=== PATIENT | female | born 1960 | race Caucasian/White ===

== ENCOUNTER 2018-09-15 12:26 | Observation (INO) ==
--- NOTE | 2018-09-15 13:09 | Emergency Department Note ---
Disposition Clinical Impression: Hyperglycemia Nausea and vomiting Qualifiers: Vomiting type: unspecified Vomiting Intractability: non-intractable Qualified Code(s): R11.2 - Nausea with vomiting, unspecified Peripheral vertigo, unspecified Qualifiers: Laterality: unspecified laterality Qualified Code(s): H81.399 - Other peripheral vertigo, unspecified ear UTI (urinary tract infection) Qualifiers: Urinary tract infection type: site unspecified Hematuria presence: without hematuria Qualified Code(s): N39.0 - Urinary tract infection, site not specified Disposition: Admitted As Inpatient Condition: Fair Time of Disposition: 17:34 Nausea/Vomiting/Diarrhea HPI - General Chief complaint: ED Nausea/Vomiting/Diarrhea Stated complaint: n/v and vertigo Time Seen by Provider: 09/15/18 13:07 Source: patient Mode of arrival: private vehicle Limitations: no limitations Nursing Notes Reviewed: Yes Vital Signs Reviewed: Yes - History of Present Illness HPI Narrative: Patient presents to the ED complaining of nausea, vomiting and dizziness. Symptoms have been going on since September 10. She was seen here on September 12 for the same symptoms. She states the symptoms have not really gone away since she was seen here last despite taking Phenergan and meclizine. She states the dizziness is primarily with certain movements of her head. Nausea happens primarily with the dizziness but occasionally at other times. She denies any abdominal pain. No diarrhea or constipation. No urinary symptoms. No fever or chills. She does report that she has had some intermittent chest pain today that started around 7 AM while she was watching television. Pain does not radiate. It is in the center of her chest. Nothing seems to make it better or worse. She states she also had chest pain when she was seen here on the . Review of records shows that she had a normal EKG, normal head CT and abdominal CT at that time. She did have some mild lab abnormalities including signs of possible dehydration as well as some hyperglycemia and elevated lactate. Will repeat lab work today and EKG. I do not feel that repeat head CT and abdominal CT are warranted yet at this time. - Related Data Home Medications Medication Instructions Recorded Confirmed Aspirin [Lo-Dose Aspirin EC] 81 mg PO DAILY 09/12/18 09/15/18 Humalog Kwikpen U-100 4 unit SQ TID 09/12/18 09/15/18 Insulin Glargine [Lantus] 14 unit SQ HS 09/12/18 09/15/18 Semaglutide [Ozempic] 0.25 mg SQ Q7D 09/12/18 09/15/18 metFORMIN [Glucophage] 500 mg PO DAILY 09/12/18 09/15/18 Furosemide [Lasix] 20 mg PO DAILY 09/15/18 09/15/18 Potassium Chloride [Klor-Con 10] 10 meq PO DAILY 09/15/18 09/15/18 hydrOXYzine HCl [Hydroxyzine HCl] 25 mg PO DAILY 09/15/18 09/15/18 Previous Rx's Medication Instructions Recorded Meclizine [Antivert] 25 mg PO QID #20 tablet 09/12/18 Promethazine [Phenergan] 12.5 mg PO Q6HR #10 tablet 09/12/18 Allergies Allergy/AdvReac Type Severity Reaction Status Date / Time sulfamethoxazole Allergy Vomiting Verified 09/12/18 21:25 [From Bactrim] trimethoprim [From Bactrim] Allergy Vomiting Verified 09/12/18 21:25 Constitutional: Denies: fever, chills, weakness, weight change Eyes: Denies: eye pain, eye discharge, vision change ENT ED: Denies: ear pain, throat pain, dental pain, hearing loss, epistaxis, congestion, dysphagia Cardiovascular: Reports: chest pain. Denies: palpitations, dyspnea on exertion, edema, syncope Respiratory: Reports: dyspnea. Denies: cough, wheezes, hemoptysis, stridor Gastrointestinal: Reports: nausea, vomiting. Denies: abdominal pain, diarrhea, constipation, hematemesis, melena, hematochezia Genitourinary: Denies: dysuria, frequency, hematuria, discharge Musculoskeletal: Denies: back pain, neck pain, arthralgia, myalgia Integumentary: Denies: rash, abrasion, lesions Neurological: Reports: vertigo. Denies: headache, weakness, numbness, paresthesias, confusion, abnormal gait Psychiatric: Denies: anxiety, depression, suicidal thoughts, homicidal thoughts, auditory hallucinations, visual hallucinations Endocrine: Denies: fatigue Hematological/Lymphatic: Denies: easy bleeding, easy bruising Allergic/Immunologic: Denies: facial swelling, urticaria Past Medical History - Past Medical History Medical history: Reports: diabetes, hyperlipidemia, hypertension, thyroid disease Psychiatric history: Reports: no psych history - Social History Smoking Status: Never smoker Smokeless Tobacco Status: No Alcohol use: Reports: none Drug use: Reports: none Physical Exam - General Limitations: no limitations General appearance: alert, in no apparent distress, other (frail, ill appearing) - Head Head exam: atraumatic, normocephalic, normal inspection - Eye Eye exam: Present: normal appearance, PERRL, EOMI - ENT ENT exam: normal exam, normal oropharynx, mucous membranes dry - Neck Neck exam: Present: normal inspection, full ROM, trachea midline - Chest Chest inspection: Present: normal inspection, symmetric chest wall rise - Respiratory Respiratory exam: Present: normal lung sounds bilaterally - Cardiovascular Cardiovascular exam: Present: regular rate, normal rhythm, normal heart sounds - Abdominal Exam Abdominal exam: Present: soft, Non-Tender. Absent: tenderness, distention, guarding, rebound, rigidity - Extremities Exam Extremities exam: Present: normal inspection, full ROM. Absent: tenderness, pedal edema - Back Exam Back exam: Present: normal inspection, full ROM. Absent: tenderness - Neurological Exam Neurological exam: Present: alert, oriented X3 - Psychiatric Psychiatric exam: Present: normal affect, normal mood - Skin Skin exam: Present: warm, dry, intact, normal color Course Course Narrative: Patient presents to the ED with persistent nausea, vomiting and vertigo along with some chest pain and shortness of breath despite taking meclizine and Phenergan for the past few days for similar symptoms. On arrival she is afebrile, he definitely stable and nontoxic in appearance other she does appear clinically dehydrated and somewhat ill-appearing. Will check labs, give medication for nausea and IV fluids. - Reevaluation(s) Reevaluation #1: Fingerstick glucose in the 400s with a mildly elevated white blood cell count. Urinalysis shows evidence of UTI. Troponin and lactic acid are normal. Additional labs were performed to rule out possibility of DKA. Patient was given insulin and IV fluids with some improvement in her sugars although they still remained elevated. She continued to have persistent nausea and intermittent vomiting despite medications here in the ER. Discussed with patient admission for continued monitoring and treatment and she is in agreement. Reevaluation #2: I spoke to the hospitalist avionics mechanic, Dr. León who has accepted the patient. Time: 17:34 Vital Signs Temperature 98 F 09/15/18 12:27 Pulse Rate 90 09/15/18 12:27 Respiratory Rate 18 09/15/18 12:27 Blood Pressure 101/67 09/15/18 12:27 O2 Sat by Pulse Oximetry 96 09/15/18 12:27 Temperature 99.6 F 09/16/18 06:27 Pulse Rate 86 09/16/18 06:27 Respiratory Rate 16 09/16/18 06:27 Blood Pressure 142/94 09/16/18 06:27 O2 Sat by Pulse Oximetry 99 09/16/18 06:27 Oxygen Delivery Oxygen Delivery Nasal Cannula Nausea/Vomiting/Diarrhea - Medical Records Medical records reviewed: Yes I reviewed the patient's medical records. - Lab Data Lab results reviewed: Yes I reviewed the patient's lab results. Result diagrams: 09/15/18 13:37 09/15/18 13:37 Lab Results 09/15/18 09/15/18 09/15/18 Range/Units 13:15 13:37 13:37 WBC 14.7 H (4.3-11.1) K/mcL RBC 4.67 (3.82-4.97) M/mcL Hgb 12.3 (11.5-15.4) g/dL Hct 38.2 (35.3-44.9) % MCV 81.8 L (83.0-100.0) fL MCH 26.3 L (28.0-33.3) pg MCHC 32.2 (31.6-35.5) g/dL RDW 15.4 H (11.5-14.5) % Plt Count 259 (140-400) K/mcL MPV 10.2 (9.4-12.4) fL Immature Gran % 0.5 (0-4) % Seg Neutrophils % 84.7 % Lymphocytes % 6.6 % Monocytes % 8.1 % Eosinophils % 0.0 % Basophils % 0.1 % Neutrophils # 12.5 H (1.6-8.9) K/mcL Lymphocytes # 1.0 (0.6-4.6) K/mcL Monocytes # 1.2 (0.0-1.3) K/mcL Eosinophils # 0.0 (0.0-0.6) K/mcL Basophils # 0.0 (0.0-0.2) K/mcL VBG pH (7.32-7.42) pH Units VBG pCO2 (41-51) mmHg VBG pO2 (25-50) mmHg VBG HCO3 (21-27) mEq/L Sodium 133 L (136-145) mEq/L Potassium 3.8 (3.5-5.1) mEq/L Chloride 87 L (98-107) mEq/L Carbon Dioxide 32 H (23-29) mEq/L BUN 42 H (6-20) mg/dL Creatinine 1.03 (0.60-1.20) mg/dL Est GFR ( Amer) > 60 (> 60) Est GFR (Non-Af Amer) 55 L (> 60) BUN/Creatinine Ratio 41 H (6-26) Glucose 423 H (70-105) mg/dL POC Glucose (70-99) mg/dL Calculated Osmolality 305 H (280-300) Lactic Acid (0.5-2.2) mmol/L Calcium 9.8 (8.6-10.3) mg/dL Troponin I (< 0.04) ng/mL B-Natriuretic Peptide (Less than 100) pg/mL Beta-Hydroxybutyric Acd (0.02-0.27) mmol/L Urine Color Yellow (Yellow) Urine Clarity Cloudy A (Clear) Urine pH 5.5 (5.0-8.0) pH Units Ur Specific [place] 1.025 (1.010-1.025) Urine Protein 30 H (Neg-Trace) mg/dL Urine Glucose (UA) 500 H (Normal) mg/dL Urine Ketones 80 H (Negative) mg/dL Urine Blood Trace-lysed H (Negative) Urine Nitrite Negative (Negative) Urine Bilirubin Small H (Negative) Urine Urobilinogen Normal (Normal) mg/dL Ur Leukocyte Esterase Trace H (Negative) Urine Microscopic RBC 0-3 (0-3) per hpf Urine Microscopic WBC 5-15 H (0-3) per hpf Ur Squamous Epith Cells Moderate H (None-Few) per lpf Urine Bacteria Many H (None-Few) per hpf Granular Casts Few H (None Seen) per lpf Urine Mucus Few (Few) Ur Culture Indicated? YES A (NO) 09/15/18 09/15/18 09/15/18 Range/Units 13:37 13:37 14:29 WBC (4.3-11.1) K/mcL RBC (3.82-4.97) M/mcL Hgb (11.5-15.4) g/dL Hct (35.3-44.9) % MCV (83.0-100.0) fL MCH (28.0-33.3) pg MCHC (31.6-35.5) g/dL RDW (11.5-14.5) % Plt Count (140-400) K/mcL MPV (9.4-12.4) fL Immature Gran % (0-4) % Seg Neutrophils % % Lymphocytes % % Monocytes % % Eosinophils % % Basophils % % Neutrophils # (1.6-8.9) K/mcL Lymphocytes # (0.6-4.6) K/mcL Monocytes # (0.0-1.3) K/mcL Eosinophils # (0.0-0.6) K/mcL Basophils # (0.0-0.2) K/mcL VBG pH (7.32-7.42) pH Units VBG pCO2 (41-51) mmHg VBG pO2 (25-50) mmHg VBG HCO3 (21-27) mEq/L Sodium (136-145) mEq/L Potassium (3.5-5.1) mEq/L Chloride (98-107) mEq/L Carbon Dioxide (23-29) mEq/L BUN (6-20) mg/dL Creatinine (0.60-1.20) mg/dL Est GFR ( Amer) (> 60) Est GFR (Non-Af Amer) (> 60) BUN/Creatinine Ratio (6-26) Glucose (70-105) mg/dL POC Glucose 393 H (70-99) mg/dL Calculated Osmolality (280-300) Lactic Acid (0.5-2.2) mmol/L Calcium (8.6-10.3) mg/dL Troponin I < 0.03 (< 0.04) ng/mL B-Natriuretic Peptide 56 (Less than 100) pg/mL Beta-Hydroxybutyric Acd (0.02-0.27) mmol/L Urine Color (Yellow) Urine Clarity (Clear) Urine pH (5.0-8.0) pH Units Ur Specific [place] (1.010-1.025) Urine Protein (Neg-Trace) mg/dL Urine Glucose (UA) (Normal) mg/dL Urine Ketones (Negative) mg/dL Urine Blood (Negative) Urine Nitrite (Negative) Urine Bilirubin (Negative) Urine Urobilinogen (Normal) mg/dL Ur Leukocyte Esterase (Negative) Urine Microscopic RBC (0-3) per hpf Urine Microscopic WBC (0-3) per hpf Ur Squamous Epith Cells (None-Few) per lpf Urine Bacteria (None-Few) per hpf Granular Casts (None Seen) per lpf Urine Mucus (Few) Ur Culture Indicated? (NO) 09/15/18 09/15/18 09/15/18 Range/Units 14:35 14:35 14:44 WBC (4.3-11.1) K/mcL RBC (3.82-4.97) M/mcL Hgb (11.5-15.4) g/dL Hct (35.3-44.9) % MCV (83.0-100.0) fL MCH (28.0-33.3) pg MCHC (31.6-35.5) g/dL RDW (11.5-14.5) % Plt Count (140-400) K/mcL MPV (9.4-12.4) fL Immature Gran % (0-4) % Seg Neutrophils % % Lymphocytes % % Monocytes % % Eosinophils % % Basophils % % Neutrophils # (1.6-8.9) K/mcL Lymphocytes # (0.6-4.6) K/mcL Monocytes # (0.0-1.3) K/mcL Eosinophils # (0.0-0.6) K/mcL Basophils # (0.0-0.2) K/mcL VBG pH 7.44 H (7.32-7.42) pH Units VBG pCO2 44 (41-51) mmHg VBG pO2 55 H (25-50) mmHg VBG HCO3 30 H (21-27) mEq/L Sodium (136-145) mEq/L Potassium (3.5-5.1) mEq/L Chloride (98-107) mEq/L Carbon Dioxide (23-29) mEq/L BUN (6-20) mg/dL Creatinine (0.60-1.20) mg/dL Est GFR ( Amer) (> 60) Est GFR (Non-Af Amer) (> 60) BUN/Creatinine Ratio (6-26) Glucose (70-105) mg/dL POC Glucose (70-99) mg/dL Calculated Osmolality (280-300) Lactic Acid 1.5 (0.5-2.2) mmol/L Calcium (8.6-10.3) mg/dL Troponin I (< 0.04) ng/mL B-Natriuretic Peptide (Less than 100) pg/mL Beta-Hydroxybutyric Acd > 2.00 H (0.02-0.27) mmol/L Urine Color (Yellow) Urine Clarity (Clear) Urine pH (5.0-8.0) pH Units Ur Specific [place] (1.010-1.025) Urine Protein (Neg-Trace) mg/dL Urine Glucose (UA) (Normal) mg/dL Urine Ketones (Negative) mg/dL Urine Blood (Negative) Urine Nitrite (Negative) Urine Bilirubin (Negative) Urine Urobilinogen (Normal) mg/dL Ur Leukocyte Esterase (Negative) Urine Microscopic RBC (0-3) per hpf Urine Microscopic WBC (0-3) per hpf Ur Squamous Epith Cells (None-Few) per lpf Urine Bacteria (None-Few) per hpf Granular Casts (None Seen) per lpf Urine Mucus (Few) Ur Culture Indicated? (NO) 09/15/18 09/15/18 Range/Units 15:42 17:19 WBC (4.3-11.1) K/mcL RBC (3.82-4.97) M/mcL Hgb (11.5-15.4) g/dL Hct (35.3-44.9) % MCV (83.0-100.0) fL MCH (28.0-33.3) pg MCHC (31.6-35.5) g/dL RDW (11.5-14.5) % Plt Count (140-400) K/mcL MPV (9.4-12.4) fL Immature Gran % (0-4) % Seg Neutrophils % % Lymphocytes % % Monocytes % % Eosinophils % % Basophils % % Neutrophils # (1.6-8.9) K/mcL Lymphocytes # (0.6-4.6) K/mcL Monocytes # (0.0-1.3) K/mcL Eosinophils # (0.0-0.6) K/mcL Basophils # (0.0-0.2) K/mcL VBG pH (7.32-7.42) pH Units VBG pCO2 (41-51) mmHg VBG pO2 (25-50) mmHg VBG HCO3 (21-27) mEq/L Sodium (136-145) mEq/L Potassium (3.5-5.1) mEq/L Chloride (98-107) mEq/L Carbon Dioxide (23-29) mEq/L BUN (6-20) mg/dL Creatinine (0.60-1.20) mg/dL Est GFR ( Amer) (> 60) Est GFR (Non-Af Amer) (> 60) BUN/Creatinine Ratio (6-26) Glucose (70-105) mg/dL POC Glucose 376 H 356 H (70-99) mg/dL Calculated Osmolality (280-300) Lactic Acid (0.5-2.2) mmol/L Calcium (8.6-10.3) mg/dL Troponin I (< 0.04) ng/mL B-Natriuretic Peptide (Less than 100) pg/mL Beta-Hydroxybutyric Acd (0.02-0.27) mmol/L Urine Color (Yellow) Urine Clarity (Clear) Urine pH (5.0-8.0) pH Units Ur Specific [place] (1.010-1.025) Urine Protein (Neg-Trace) mg/dL Urine Glucose (UA) (Normal) mg/dL Urine Ketones (Negative) mg/dL Urine Blood (Negative) Urine Nitrite (Negative) Urine Bilirubin (Negative) Urine Urobilinogen (Normal) mg/dL Ur Leukocyte Esterase (Negative) Urine Microscopic RBC (0-3) per hpf Urine Microscopic WBC (0-3) per hpf Ur Squamous Epith Cells (None-Few) per lpf Urine Bacteria (None-Few) per hpf Granular Casts (None Seen) per lpf Urine Mucus (Few) Ur Culture Indicated? (NO) - Radiology Data Radiology results reviewed: Yes I reviewed the patient's radiology results. ITS Impressions Chest X-Ray 09/15/18 13:26 IMPRESSION: 1. No acute abnormality. D/ / Isiah Sherman MD / Isiah Sherman MD Interpreting Provider: Isiah Sherman MD - EKG Data EKG attestation: Yes I reviewed and interpreted this EKG. EKG shows normal: sinus rhythm Rate: normal Rhythm: NSR [place]/QRS: normal Interpretation: unchanged when compared to prior tracing (date) (09/12/18)
[2018-09-15] MEDS ORDERED: Ondansetron 4 MG/2 ML VIAL IVP ONE (13:25)
[2018-09-15] MEDS ORDERED: 0.9 % Sodium Chloride 1,000 ML IVC ONE ×2 (13:25→14:25)
[2018-09-15 13:33] LABS: Bilirubin,Urine Small (Negative); Blood,Urine Trace-lysed (Negative); Clarity,Urine Cloudy (Clear); Color,Urine Yellow (Yellow); Glucose,Urine (UA) 500 mg/dL (Normal); Ketones,Urine 80 mg/dL (Negative); Leukocyte Esterase,Urine Trace (Negative); Nitrite,Urine Negative (Negative); PH,Urine 5.5 pH Units (5.0-8.0); Protein,Urine 30 mg/dL (Neg-Trace); Specific Gravity,Urine 1.025 (1.010-1.025); Urobilinogen,Urine Normal (Normal)
[2018-09-15 13:43] LABS: Bacteria,Urine Many per hpf (None-Few); Granular Casts,Urine Few per lpf (None Seen); Mucus,Urine Few (Few); RBC,Urine 0-3 per hpf (0-3); Squamous Epithelial Cell,Urine Moderate per lpf (None-Few)
[2018-09-15 13:46] LABS: Basophils % 0.1 %; Hematocrit 38.2 % (35.3-44.9); Hemoglobin 12.3 g/dL (11.5-15.4); Immature Granulocytes % 0.5 % (0-4); Lymphocytes % 6.6 %; Mean Corpuscular HGB Conc 32.2 g/dL (31.6-35.5); Mean Corpuscular Hemoglobin 26.3 pg (28.0-33.3); Mean Corpuscular Volume 81.8 fL (83.0-100.0); Mean Platelet Volume 10.2 fL (9.4-12.4); Monocytes # 1.2 K/mcL (0.0-1.3); Monocytes % 8.1 %; Platelet Count 259 K/mcL (140-400); Red Blood Count 4.67 M/mcL (3.82-4.97); Red Cell Distribution Width 15.4 % (11.5-14.5); Segmented Neutrophils % 84.7 %; White Blood Count 14.7 K/mcL (4.3-11.1)
[2018-09-15 13:47] LABS: Neutrophils # 12.5 K/mcL (1.6-8.9)
[2018-09-15 13:59] LABS: BUN/Creatinine Ratio 41 (6-26); Blood Urea Nitrogen 42 mg/dL (6-20); Calcium 9.8 mg/dL (8.6-10.3); Carbon Dioxide 32 mEq/L (23-29); Chloride 87 mEq/L (98-107); Glucose 423 mg/dL (70-105); Osmolality,Calculated 305 (280-300); Potassium 3.8 mEq/L (3.5-5.1); Sodium 133 mEq/L (136-145); eGFR For African Americans > 60 (> 60); eGFR For Non-African Americans 55 (> 60)
[2018-09-15] MEDS ORDERED: *HR* Promethazine 25 MG/ML VIAL IVP ONE (14:26)
[2018-09-15] MEDS ORDERED: cephALEXin 250 MG CAPSULE PO ONE (14:41)
[2018-09-15 14:48] LABS: VBG HCO3 30 mEq/L (21-27); VBG PCO2 44 mmHg (41-51); VBG PH 7.44 pH Units (7.32-7.42); VBG PO2 55 mmHg (25-50)
[2018-09-15] MEDS ORDERED: Insulin Regular, Human 100 UNIT/ML SQ ONE (15:04)
[2018-09-15] MEDS ORDERED: Naloxone 0.4 MG/ML INJ IVP PRN ×2 (18:33→22:27)
[2018-09-15] MEDS ORDERED: D5% in Water 1,000 ML IVC PRN ×2 (18:36→22:27)
[2018-09-15] MEDS ORDERED: Dextrose Gel 15 GM/37.5 ML TUBE PO PRN ×4 (18:36→22:27)
[2018-09-15] MEDS ORDERED: *HR* Dextrose 50 % in Water (Syg) 50 ML SYRINGE IVP PRN ×2 (18:36→22:27)
[2018-09-15] MEDS ORDERED: 0.9 % Sodium Chloride 1,000 ML IVC SCH (18:45)
[2018-09-15] MEDS ORDERED: Insulin LISPRO 300 UNITS/3 ML VIAL SQ SCH (21:00)
[2018-09-15] MEDS ORDERED: Insulin DETEMIR 100 UNIT/ML per UNIT SQ SCH (22:27)
[2018-09-15] MEDS ORDERED: Semaglutide [Ozempic] 0.25 MG SQ SCH (22:27)
[2018-09-16] MEDS: 0.9 % Sodium Chloride 1,000 ML IVC SCH ×2 (00:09→09:58)
[2018-09-16] MEDS: Insulin LISPRO 300 UNITS/3 ML VIAL SQ SCH ×5 (00:15→20:01)
[2018-09-16] MEDS ORDERED: Insulin LISPRO 300 UNITS/3 ML VIAL SQ SCH ×3 (07:30→21:00)
[2018-09-16] MEDS ORDERED: Aspirin Enteric Coated 81 MG Tablet PO SCH (09:00)
[2018-09-16] MEDS ORDERED: Furosemide 20 MG TABLET PO SCH (09:00)
[2018-09-16] MEDS: *HR* Metformin 500 MG TABLET PO SCH (09:57)
[2018-09-16] MEDS: hydrOXYzine pamoate 25 MG CAPSULE PO SCH (09:57)
--- NOTE | 2018-09-16 11:50 | Internal Med History&Physical ---
Date of Encounter: 09/16/18 Time of Encounter: 11:15 Assessment and Plan (1) Acute gastroenteritis Current visit: Yes Status: Acute IV fluids have been ordered. Anti-emetics will be given as needed. Recheck labs in a.m. (2) Microcytosis Current visit: Yes Status: Acute Iron profile will be checked in a.m. (3) Dehydration Current visit: Yes Status: Acute Continue IV fluids. Recheck labs in a.m. (4) Hyperglycemia Current visit: Yes Status: Acute Blood sugars have improved. Continue basal insulin, metformin, Semaglutide, and Accu-Cheks with SSI. (5) UTI (urinary tract infection) Current visit: Yes Status: Acute Possible although moderate squamous epithelial cells noted in collected specimen. She denies UTI symptoms. Continue to monitor. Qualifiers: Urinary tract infection type: site unspecified Hematuria presence: without hematuria Qualified Code(s): N39.0 - Urinary tract infection, site not specified Internal Medicine - H&P: HPI Chief complaint: Vomiting, hyperglycemia Admitted From: Emergency Dept Plans for Post Hospital Care: Home History of present illness: Ms. Mcmillan is a 58 year old female who came to emergency room stating she had onset of nonbloody vomiting 09/10/2018. She had vertigo and intermittent discomfort in her chest that she describes as a heaviness/pressure. She was given prescriptions for Antivert and Phenergan. She reports symptoms persisted so she came back to emergency room and was found to have persistent azotemia, hyperglycemia, and leukocytosis with left shift. She was admitted to [facility] floor for ongoing care needs. She denies previous similar episodes. She reports no household contacts have similar symptoms. GI history is negative for known disorders of liver gallbladder or exocrine pancreas. She denies diarrhea fevers or chills. Past Med Surg Social Fam HX - Past Medical History Medical history: diabetes, hyperlipidemia, hypertension, thyroid disease Psychiatric history: no psych history - Past Surgical History Additional surgical history: Left femur - Social History Smoking Status: Never smoker Smokeless Tobacco Status: No Alcohol use: none Drug use: none Internal Medicine - H&P: Meds Aspirin [Lo-Dose Aspirin EC] 81 mg PO DAILY 09/12/18 [History] Humalog Kwikpen U-100 4 unit SQ TID 09/12/18 [History] Insulin Glargine [Lantus] 14 unit SQ HS 09/12/18 [History] Meclizine [Antivert] 25 mg PO QID #20 tablet 09/12/18 [Rx] Promethazine [Phenergan] 12.5 mg PO Q6HR #10 tablet 09/12/18 [Rx] Semaglutide [Ozempic] 0.25 mg SQ Q7D 09/12/18 [History] metFORMIN [Glucophage] 500 mg PO DAILY 09/12/18 [History] Furosemide [Lasix] 20 mg PO DAILY 09/15/18 [History] Potassium Chloride [Klor-Con 10] 10 meq PO DAILY 09/15/18 [History] hydrOXYzine HCl [Hydroxyzine HCl] 25 mg PO DAILY 09/15/18 [History] Allergy/AdvReac Type Severity Reaction Status Date / Time sulfamethoxazole Allergy Vomiting Verified 09/12/18 21:25 [From Bactrim] trimethoprim [From Bactrim] Allergy Vomiting Verified 09/12/18 21:25 All Systems PM: A 10-system review of systems was performed and is negative for pertinent findings except as documented above in the HPI. Review of systems: Gen.: She states her weight has been stable for several months Cardiovascular: She has history of hypertension but denies [place] heart failure angina DVT or pulmonary embolus Respiratory: She is a lifelong nonsmoker and denies chronic lung disease GI: As per history of present illness : She denies hematuria dysuria or kidney stones Neurologic: She had positional vertigo with present illness. She denies large distribution strokes or seizures. Endocrine: She was diagnosed with DM 2 in 2017. She has hyperlipidemia. She reports abnormal thyroid test in the past with prescription given for levothyroxine. She states she could not tolerate the medication so discontinued it. TSH was normal at 5.335 on 06/20/2018. Hematology/oncology: She denies blood disorders cancers or anemia Psychiatric: She denies anxiety depression or other mental health issues [place] skeletal: She had left femur fracture 2017 with lupis placement. She denies significant arthritis gout or other bone joint or muscle disorders. - Constitutional Vitals: Temp Pulse Resp BP Pulse Ox 99.2 F 82 16 136/89 99 09/16/18 10:23 09/16/18 10:23 09/16/18 10:23 09/16/18 10:23 09/16/18 10:23 Exam: Gen.: She is a well-developed well-nourished female resting comfortably in bed who appears in no acute distress at present time HEENT: Head is atraumatic and normocephalic. Eyes: EOMI. There is no scleral icterus. Mouth: Mucosa is moist. Neck: Supple and nontender. There is no thyromegaly or adenopathy noted. Heart: Regular without murmurs gallops or ectopics Lungs: No wheezes or crackles are heard. Abdomen: Abdomen is soft and nontender. No masses or guarding are noted. Bowel sounds are diminished. Extremities: There is no cyanosis edema or clubbing noted. Dorsalis pedis and posterior tibial pulses are trace to 1+ palpable bilaterally. Neurologic: Mental status: She is talkative and a good historian. Cranial nerves: Smile is symmetric. Forehead wrinkles bilaterally. Tongue protrudes midline. EOMI. Motor: There is no pronator drift. Cerebellar: Finger to nose is intact bilaterally. Skin: Warm and dry Internal Med - H&P Results - Labs CBC & Chem 7: 09/15/18 13:37 09/15/18 13:37 Labs: Short CBC 09/15/18 Range/Units 13:37 WBC 14.7 H (4.3-11.1) K/mcL Hgb 12.3 (11.5-15.4) g/dL Hct 38.2 (35.3-44.9) % Plt Count 259 (140-400) K/mcL Neutrophils # 12.5 H (1.6-8.9) K/mcL BMP 09/15/18 13:37 Sodium 133 L Potassium 3.8 Chloride 87 L Carbon Dioxide 32 H BUN 42 H Creatinine 1.03 Glucose 423 H Calcium 9.8 Cardiac Enzymes 09/15/18 Range/Units 13:37 Troponin I < 0.03 (< 0.04) ng/mL Urine 09/15/18 Range/Units 13:15 Urine Color Yellow (Yellow) Urine Clarity Cloudy A (Clear) Urine pH 5.5 (5.0-8.0) pH Units Ur Specific [place] 1.025 (1.010-1.025) Urine Protein 30 H (Neg-Trace) mg/dL Urine Glucose (UA) 500 H (Normal) mg/dL - ABG Interpretation ABG results: 09/15/18 14:44 VBG pH 7.44 H VBG pCO2 44 VBG pO2 55 H VBG HCO3 30 H - Impressions ITS Impressions Chest X-Ray 09/15/18 13:26 IMPRESSION: 1. No acute abnormality. D/ / Isiah Sherman MD / Isiah Sherman MD Interpreting Provider: Isiah Sherman MD - VTE Reasons for not Prescribing Prophylaxis: Treatment not Indicated - Low risk for VTE
[2018-09-17 07:43] LABS: Basophils % 0.1 %; Eosinophils % 0.5 %; Hemoglobin 11.7 g/dL (11.5-15.4); Immature Granulocytes % 0.3 % (0-4); Lymphocytes # 1.3 K/mcL (0.6-4.6); Lymphocytes % 15.3 %; Mean Corpuscular HGB Conc 31.6 g/dL (31.6-35.5); Mean Corpuscular Hemoglobin 26.1 pg (28.0-33.3); Mean Corpuscular Volume 82.6 fL (83.0-100.0); Mean Platelet Volume 9.7 fL (9.4-12.4); Monocytes # 0.8 K/mcL (0.0-1.3); Neutrophils # 6.5 K/mcL (1.6-8.9); Platelet Count 185 K/mcL (140-400); Red Blood Count 4.48 M/mcL (3.82-4.97); Red Cell Distribution Width 14.6 % (11.5-14.5); Segmented Neutrophils % 74.8 %; White Blood Count 8.6 K/mcL (4.3-11.1)
[2018-09-17] MEDS: hydrOXYzine pamoate 25 MG CAPSULE PO SCH (08:02)
[2018-09-17] MEDS: *HR* Metformin 500 MG TABLET PO SCH (08:03)
[2018-09-17] MEDS: Ondansetron ODT 4 MG TAB.RAPDIS SL PRN ×3 (08:03→17:21)
[2018-09-17] MEDS: Insulin LISPRO 300 UNITS/3 ML VIAL SQ SCH ×4 (08:03→21:52)
[2018-09-17 08:33] LABS: Alanine Aminotransferase 7 Units/L (7-52); Albumin/Globulin Ratio 1.2 (1.1-2.2); Alkaline Phosphatase 62 Units/L (34-104); Aspartate Amino Transferase 9 Units/L (13-39); BUN/Creatinine Ratio 35 (6-26); Bilirubin,Total 1.2 mg/dL (0.3-1.0); Blood Urea Nitrogen 21 mg/dL (6-20); Calcium 8.2 mg/dL (8.6-10.3); Carbon Dioxide 30 mEq/L (23-29); Chloride 98 mEq/L (98-107); Globulin 2.6 g/dL (2.4-3.5); Glucose 261 mg/dL (70-105); Magnesium 2.1 mg/dL (1.6-2.6); Osmolality,Calculated 292 (280-300); Potassium 3.5 mEq/L (3.5-5.1); Sodium 135 mEq/L (136-145); Total Protein 5.6 g/dL (6.4-8.9); eGFR For African Americans > 60 (> 60); eGFR For Non-African Americans > 60 (> 60)
[2018-09-17 09:20] LABS: % Iron Saturation 24 % (15-50); Iron 56 mcg/dL (50-170); Transferrin 167 mg/dL (203-362)
[2018-09-17 09:33] LABS: Ferritin 54 ng/mL (10-120)
--- NOTE | 2018-09-17 10:07 | Internal Med Progress Note ---
Date of Encounter: 09/17/18 Time of Encounter: 10:00 - Assessment and plan (1) Acute gastroenteritis Current Visit: Yes Status: Acute Assessment and plan: September 17. Continue IV fluids and prn anti-emetics. Recheck labs in a.m.. (2) Microcytosis Current Visit: Yes Status: Acute Assessment and plan: September 17. Iron studies show iron 56, transferrin saturation 24%, transferrin 167, and ferritin 54. Continue to monitor. (3) Dehydration Current Visit: Yes Status: Acute Assessment and plan: September 17. BUN and creatinine significantly improved at 21 and 0.60 respectively with estimated GFR > 60. Continue IV fluids. (4) Hyperglycemia Current Visit: Yes Status: Acute Assessment and plan: September 17. Continue basal insulin, metformin, Semaglutide, and Accu-Cheks with SSI (5) UTI (urinary tract infection) Current Visit: Yes Status: Acute Assessment and plan: September 17. Preliminary urine culture shows gram-negative rods. She will be given IV Rocephin with lactobacillus pending final culture report. Qualifiers: Urinary tract infection type: site unspecified Hematuria presence: without hematuria Qualified Code(s): N39.0 - Urinary tract infection, site not s pecified - Subjective Interval history: September 17. She has no new complaints. She feels improved but still weak and has nausea periodically. - Constitutional Vitals: Temp Pulse Resp BP Pulse Ox 98.6 F 79 18 132/88 98 09/17/18 07:02 09/17/18 07:02 09/17/18 07:02 09/17/18 07:02 09/17/18 07:02 Exam: She is resting comfortably in bed and appears in no acute distress. Her affect is overall cheerful. I reviewed her medications and lab results. Internal Medicine: Result - Labs CBC & Chem 7: 09/17/18 07:32 09/17/18 07:32 Labs: Short CBC 09/17/18 Range/Units 07:32 WBC 8.6 (4.3-11.1) K/mcL Hgb 11.7 (11.5-15.4) g/dL Hct 37.0 (35.3-44.9) % Plt Count 185 (140-400) K/mcL Neutrophils # 6.5 (1.6-8.9) K/mcL BMP 09/17/18 07:32 Sodium 135 L Potassium 3.5 Chloride 98 Carbon Dioxide 30 H BUN 21 H Creatinine 0.60 Glucose 261 H Calcium 8.2 L Liver Function 09/17/18 Range/Units 07:32 Total Bilirubin 1.2 H (0.3-1.0) mg/dL AST 9 L (13-39) Units/L ALT 7 (7-52) Units/L Alkaline Phosphatase 62 (34-104) Units/L Albumin 3.0 L (3.5-5.7) g/dL - VTE Reasons for not Prescribing Prophylaxis: Treatment not Indicated - Low risk for VTE Consult Discharge Plan - Plan Referrals: Jody Allan MD [Primary Care Provider] -
[2018-09-17] MEDS: Insulin DETEMIR 100 UNIT/ML X5UNITS SQ SCH ×2 (11:05→21:54)
[2018-09-17] MEDS: 0.45 % Sodium Chloride w/KCl 20 MEQ/1,000 ML MLS IVC SCH (11:05)
[2018-09-17 11:31] LABS: Estimated Average Glucose 169 mg/dl
--- NOTE | 2018-09-17 16:26 | Electrocardiograph Report ---
[place] [id number] Test Date: 2018-09-15 Pat Name: Connie Stephensongomery Department: EDP-12 Room: [facility] Gender: F [employer] Technician: : [id number] Requested By: Nemo Aviles Order Number: [id number] Reading MD: Arianne Epstein Measurements Intervals [place] Rate: 88 P: 53 MS: 151 QRS: -86 QRSD: 106 T: 35 QT: 401 QTc: 486 Interpretive Statements Sinus rhythm Consider left atrial enlargement Anterolateral infarct, age indeterminate Electronically Signed On 09-17-2018 16:24:53 EDT by Arianne Epstein
[2018-09-18] MEDS: 0.45 % Sodium Chloride w/KCl 20 MEQ/1,000 ML MLS IVC SCH ×2 (00:41→16:41)
[2018-09-18 05:46] LABS: Basophils % 0.3 %; Eosinophils # 0.2 K/mcL (0.0-0.6); Eosinophils % 2.2 %; Hematocrit 39.9 % (35.3-44.9); Hemoglobin 12.1 g/dL (11.5-15.4); Immature Granulocytes % 0.3 % (0-4); Lymphocytes # 1.5 K/mcL (0.6-4.6); Lymphocytes % 20.2 %; Mean Corpuscular HGB Conc 30.3 g/dL (31.6-35.5); Mean Corpuscular Hemoglobin 26.3 pg (28.0-33.3); Mean Corpuscular Volume 86.7 fL (83.0-100.0); Mean Platelet Volume 10.9 fL (9.4-12.4); Monocytes # 0.6 K/mcL (0.0-1.3); Monocytes % 8.7 %; Platelet Count 115 K/mcL (140-400); Red Cell Distribution Width 14.9 % (11.5-14.5); Segmented Neutrophils % 68.3 %; White Blood Count 7.3 K/mcL (4.3-11.1)
[2018-09-18 06:12] LABS: BUN/Creatinine Ratio 32 (6-26); Blood Urea Nitrogen 19 mg/dL (6-20); Carbon Dioxide 30 mEq/L (23-29); Chloride 100 mEq/L (98-107); Glucose 159 mg/dL (70-105); Osmolality,Calculated 284 (280-300); Potassium 3.7 mEq/L (3.5-5.1); Sodium 134 mEq/L (136-145); eGFR For African Americans > 60 (> 60); eGFR For Non-African Americans > 60 (> 60)
[2018-09-18] MEDS: Ondansetron ODT 4 MG TAB.RAPDIS SL PRN (07:17)
[2018-09-18] MEDS: Insulin LISPRO 300 UNITS/3 ML VIAL SQ SCH ×4 (07:54→20:42)
[2018-09-18] MEDS: *HR* Metformin 500 MG TABLET PO SCH (07:58)
[2018-09-18] MEDS: hydrOXYzine pamoate 25 MG CAPSULE PO SCH (07:58)
[2018-09-18] MEDS: Insulin DETEMIR 100 UNIT/ML X5UNITS SQ SCH ×2 (09:34→20:21)
--- NOTE | 2018-09-18 09:48 | Internal Med Progress Note ---
Date of Encounter: 09/18/18 Time of Encounter: 09:40 - Assessment and plan (1) Acute gastroenteritis Current Visit: Yes Status: Acute Assessment and plan: September 17. Continue IV fluids and prn anti-emetics. Recheck labs in a.m.. September 18. Improving. Continue present Rx. Anticipate discharge home tomorrow if stable (2) Microcytosis Current Visit: Yes Status: Acute Assessment and plan: September 17. Iron studies show iron 56, transferrin saturation 24%, transferrin 167, and ferritin 54. Continue to monitor. (3) Dehydration Current Visit: Yes Status: Acute Assessment and plan: September 17. BUN and creatinine significantly improved at 21 and 0.60 respectively with estimated GFR > 60. Continue IV fluids. September 18. BUN and creatinine minimally changed at 19 and 0.60 respectively. Decrease IV fluid rate. (4) Hyperglycemia Current Visit: Yes Status: Acute Assessment and plan: September 17. Continue basal insulin, metformin, Semaglutide, and Accu-Cheks with SSI September 18. Blood sugars improved. Continue present Rx. (5) UTI (urinary tract infection) Current Visit: Yes Status: Acute Assessment and plan: September 17. Preliminary urine culture shows gram-negative rods. She will be given IV Rocephin with lactobacillus pending final culture report. September 18. Urine culture shows Klebsiella oxytoca. Continue Rocephin and change to oral antibiotics at discharge. Qualifiers: Urinary tract infection type: site unspecified Hematuria presence: without hematuria Qualified Code(s): N39.0 - Urinary tract infection, site not specified - Subjective Interval history: September 17. She has no new complaints. She feels improved but still weak and has nausea periodically. September 18. She states she vomited last evening. She has tolerated breakfast and does not feel nauseated at this time. She still feels weak and does not feel ready for discharge. - Constitutional Vitals: Temp Pulse Resp BP Pulse Ox 99.3 F 75 16 131/86 97 09/18/18 06:43 09/18/18 06:43 09/18/18 06:43 09/18/18 06:43 09/18/18 06:43 Exam: She is resting comfortably in bed and appears in no acute distress. Her affect is overall cheerful. I reviewed her medications and lab results. Internal Medicine: Result - Labs CBC & Chem 7: 09/18/18 05:24 09/18/18 05:24 Labs: Short CBC 09/18/18 Range/Units 05:24 WBC 7.3 (4.3-11.1) K/mcL Hgb 12.1 (11.5-15.4) g/dL Hct 39.9 (35.3-44.9) % Plt Count 115 L (140-400) K/mcL Neutrophils # 5.0 (1.6-8.9) K/mcL BMP 09/18/18 05:24 Sodium 134 L Potassium 3.7 Chloride 100 Carbon Dioxide 30 H BUN 19 Creatinine 0.60 Glucose 159 H Calcium 8.0 L - VTE Reasons for not Prescribing Prophylaxis: Treatment not Indicated - Low risk for VTE Consult Discharge Plan - Plan Referrals: Jody Allan MD [Primary Care Provider] -
[2018-09-18] MEDS: cefTRIAXone 1,000 MG in Water for inj. (sterile) 10 ML IVP SCH (10:23)
[2018-09-18] MEDS: Lactobacillus 1 EACH CAP.SPRINK PO SCH (20:21)
[2018-09-19] MEDS: 0.45 % Sodium Chloride w/KCl 20 MEQ/1,000 ML MLS IVC SCH ×2 (06:37→23:33)
[2018-09-19] MEDS: *HR* Metformin 500 MG TABLET PO SCH (07:28)
[2018-09-19] MEDS: Ondansetron ODT 4 MG TAB.RAPDIS SL PRN ×2 (07:28→15:16)
[2018-09-19] MEDS: Insulin LISPRO 300 UNITS/3 ML VIAL SQ SCH ×4 (07:29→20:38)
[2018-09-19] MEDS: hydrOXYzine pamoate 25 MG CAPSULE PO SCH (08:43)
[2018-09-19] MEDS: Insulin DETEMIR 100 UNIT/ML X5UNITS SQ SCH ×2 (08:44→20:42)
[2018-09-19] MEDS: Lactobacillus 1 EACH CAP.SPRINK PO SCH ×2 (08:44→20:42)
[2018-09-19] MEDS: cefTRIAXone 1,000 MG in Water for inj. (sterile) 10 ML IVP SCH (08:45)
--- NOTE | 2018-09-19 11:46 | Internal Med Progress Note ---
Date of Encounter: 09/19/18 Time of Encounter: 11:38 - Assessment and plan (1) Acute gastroenteritis Current Visit: Yes Status: Acute Assessment and plan: September 17. Continue IV fluids and prn anti-emetics. Recheck labs in a.m.. September 18. Improving. Continue present Rx. Anticipate discharge home tomorrow if stable September 19. Further improved. Continue present Rx. (2) Microcytosis Current Visit: Yes Status: Acute Assessment and plan: September 17. Iron studies show iron 56, transferrin saturation 24%, transferrin 167, and ferritin 54. Continue to monitor. September 19. MCV has risen to 86.7. Continue to monitor. (3) Dehydration Current Visit: Yes Status: Acute Assessment and plan: September 17. BUN and creatinine significantly improved at 21 and 0.60 respectively with estimated GFR > 60. Continue IV fluids. September 18. BUN and creatinine minimally changed at 19 and 0.60 respectively. Decrease IV fluid rate. September 19. Recheck labs in a.m. (4) Hyperglycemia Current Visit: Yes Status: Acute Assessment and plan: September 17. Continue basal insulin, metformin, Semaglutide, and Accu-Cheks with SSI September 18. Blood sugars improved. Continue present Rx. September 19. Blood sugars satisfactory. Continue present Rx (5) UTI (urinary tract infection) Current Visit: Yes Status: Acute Assessment and plan: September 17. Preliminary urine culture shows gram-negative rods. She will be given IV Rocephin with lactobacillus pending final culture report. September 18. Urine culture shows Klebsiella oxytoca. Continue Rocephin and change to oral antibiotics at discharge. Qualifiers: Urinary tract infection type: site unspecified Hematuria presence: without hematuria Qualified Code(s): N39.0 - Urinary tract infection, site not specified - Subjective Interval history: September 17. She has no new complaints. She feels improved but still weak and has nausea periodically. September 18. She states she vomited last evening. She has tolerated breakfast and does not feel nauseated at this time. She still feels weak and does not feel ready for discharge. September 19. She states she has had no further vomiting but still feels some nausea. She felt lightheaded upon standing up this morning. - Constitutional Vitals: Temp Pulse Resp BP Pulse Ox 99.6 F 79 16 110/76 95 09/19/18 11:17 09/19/18 11:17 09/19/18 11:17 09/19/18 11:17 09/19/18 11:17 Exam: She is resting comfortably in bed and appears in no acute distress. Orthostatic vital signs showed blood pressure 99/66 lying with decreased to 56/37 standing. Her affect is bright and cheerful. I reviewed her medications and lab results. Internal Medicine: Result - Labs CBC & Chem 7: 09/18/18 05:24 09/18/18 05:24 - VTE Reasons for not Prescribing Prophylaxis: Treatment not Indicated - Low risk for VTE Consult Discharge Plan - Plan Referrals: Jody Allan MD [Primary Care Provider] -
[2018-09-19] MEDS ORDERED: Mag Hydrox/Al Hydrox/Simeth 30 ML UDC PO PRN (14:53)
[2018-09-20 06:29] LABS: Basophils % 0.4 %; Eosinophils # 0.3 K/mcL (0.0-0.6); Eosinophils % 4.9 %; Hematocrit 33.5 % (35.3-44.9); Hemoglobin 10.8 g/dL (11.5-15.4); Immature Granulocytes % 0.6 % (0-4); Lymphocytes # 1.2 K/mcL (0.6-4.6); Lymphocytes % 17.9 %; Mean Corpuscular HGB Conc 32.2 g/dL (31.6-35.5); Mean Corpuscular Hemoglobin 26.7 pg (28.0-33.3); Mean Corpuscular Volume 82.7 fL (83.0-100.0); Mean Platelet Volume 9.9 fL (9.4-12.4); Monocytes # 0.8 K/mcL (0.0-1.3); Monocytes % 11.4 %; Neutrophils # 4.3 K/mcL (1.6-8.9); Platelet Count 130 K/mcL (140-400); Red Blood Count 4.05 M/mcL (3.82-4.97); Red Cell Distribution Width 15.6 % (11.5-14.5); Segmented Neutrophils % 64.8 %; White Blood Count 6.7 K/mcL (4.3-11.1)
[2018-09-20 06:49] LABS: Alanine Aminotransferase 5 Units/L (7-52); Albumin 2.5 g/dL (3.5-5.7); Albumin/Globulin Ratio 1.1 (1.1-2.2); Alkaline Phosphatase 50 Units/L (34-104); Aspartate Amino Transferase 8 Units/L (13-39); BUN/Creatinine Ratio 20 (6-26); Bilirubin,Total 0.5 mg/dL (0.3-1.0); Blood Urea Nitrogen 10 mg/dL (6-20); Calcium 7.9 mg/dL (8.6-10.3); Carbon Dioxide 28 mEq/L (23-29); Chloride 104 mEq/L (98-107); Globulin 2.3 g/dL (2.4-3.5); Glucose 193 mg/dL (70-105); Magnesium 1.9 mg/dL (1.6-2.6); Osmolality,Calculated 282 (280-300); Phosphorous 1.9 mg/dL (2.7-4.5); Potassium 4.1 mEq/L (3.5-5.1); Sodium 134 mEq/L (136-145); Total Protein 4.8 g/dL (6.4-8.9); eGFR For African Americans > 60 (> 60); eGFR For Non-African Americans > 60 (> 60)
[2018-09-20 07:02] LABS: Thyroid Stimulating Hormone 4.324 mcIU/mL (0.340-5.600)
[2018-09-20] MEDS: Insulin LISPRO 300 UNITS/3 ML VIAL SQ SCH ×3 (07:25→16:20)
[2018-09-20] MEDS: *HR* Metformin 500 MG TABLET PO SCH (07:35)
[2018-09-20] MEDS: Lactobacillus 1 EACH CAP.SPRINK PO SCH (08:15)
[2018-09-20] MEDS: hydrOXYzine pamoate 25 MG CAPSULE PO SCH (08:15)
[2018-09-20] MEDS: cefTRIAXone 1,000 MG in Water for inj. (sterile) 10 ML IVP SCH (08:16)
[2018-09-20] MEDS: Insulin DETEMIR 100 UNIT/ML X5UNITS SQ SCH (08:18)
[2018-09-20 13:16] VITALS: BP 94/64
--- NOTE | 2018-09-20 18:01 | Discharge Summary ---
Date of Encounter: 09/20/18 Time of Encounter: 17:45 - Discharge Diagnosis (1) Acute gastroenteritis Priority: Primary Status: Acute (2) Orthostatic hypotension Priority: Secondary Status: Acute (3) Microcytosis Priority: Secondary Status: Acute (4) Dehydration Priority: Secondary Status: Acute (5) Hyperglycemia Priority: Secondary Status: Acute (6) UTI (urinary tract infection) Priority: Secondary Status: Acute Qualifiers: Urinary tract infection type: site unspecified Hematuria presence: without hematuria Qualified Code(s): N39.0 - Urinary tract infection, site not specified Hospital course: Ms. Mcmillan is a 58 year old female who came to emergency room stating she had onset of nonbloody vomiting 09/10/2018. She had vertigo and intermittent discomfort in her chest that she describes as a heaviness/pressure. She was given prescriptions for Antivert and Phenergan. She reports symptoms persisted so she came back to emergency room and was found to have persistent azotemia, hyperglycemia, and leukocytosis with left shift. She was admitted to [facility] floor for ongoing care needs. Initial orders were written by the emergency room physician. I saw her on September 16 and performed a history and physical. She was given IV fluids. Antiemetics were given as needed. BUN and creatinine normalized to 10 and 0.51 respectively by day of discharge with estimated GFR greater than 60. WBC and left shift normalized by September 17. She had significant decrease in vomiting and nausea prior to discharge. I felt she likely had a viral gastroenteritis attributing to her initial symptoms. She reported she had been told several months ago during an [facility] hospitalization she likely had diabetic gastropathy. She has had intermittent nausea for several months. I started her on Reglan 5 mg qid empirically. Her PCP can monitor her symptoms and increase the dose and/or order nuclear medicine gastric emptying study as needed. She had orthostatic hypotension with blood pressure decreasing from 112/80 lying to 66/47 standing. Lasix had been discontinued earlier during hospitalization and IV fluids given with azotemia corrected. There was minimal increase in her heart rate. I felt she likely had autonomic nervous system dysfunction. Her PCP can further evaluate and/or refer for additional evaluation. I placed her empirically on Florinef 0.1 mg daily and she was instructed to wear LINNEA hose. I also instructed her to rise from seated position slowly to avoid exacerbation of symptoms. Microcytosis workup showed iron 56, transferrin saturation 24, transferrin 167, and ferritin 54. Her MCV has normalized to 86.7 by day of discharge. Urine culture returned showing Klebsiella oxytoca. She was given IV Rocephin during her hospital stay and had no symptoms at discharge. Antibiotics will not be continued. Hemoglobin A1c returned slightly elevated at 7.5%. Her PCP can adjust diabetic medications as needed. Accu-Cheks done during her hospital stay showed satisf actory control. On September 20 I felt she was stable for discharge home. She will follow with her PCP Dr. Allan within 1 week. - Time Spent with Patient Total time spent providing and/or coordinating discharge services: - Discharge Medications Prescriptions: New Fludrocortisone Acetate [Florinef] 0.1 mg PO DAILY #30 tablet Metoclopramide [Reglan] 5 mg PO QIDAC #60 tablet Continued Semaglutide [Ozempic] 0.25 mg SQ Q7D metFORMIN [Glucophage] 500 mg PO DAILY Insulin Glargine [Lantus] 14 unit SQ HS Humalog Kwikpen U-100 4 unit SQ TID Changed Meclizine [Antivert] 25 mg PO QID PRN #20 tablet PRN Reason: Vertigo Discontinued Aspirin [Lo-Dose Aspirin EC] 81 mg PO DAILY Promethazine [Phenergan] 12.5 mg PO Q6HR #10 tablet Potassium Chloride [Klor-Con 10] 10 meq PO DAILY Furosemide [Lasix] 20 mg PO DAILY hydrOXYzine HCl [Hydroxyzine HCl] 25 mg PO DAILY Home Medications: Humalog Kwikpen U-100 4 unit SQ TID 09/12/18 [History] Insulin Glargine [Lantus] 14 unit SQ HS 09/12/18 [History] Semaglutide [Ozempic] 0.25 mg SQ Q7D 09/12/18 [History] metFORMIN [Glucophage] 500 mg PO DAILY 09/12/18 [History] Fludrocortisone Acetate [Florinef] 0.1 mg PO DAILY #30 tablet 09/20/18 [Rx] Meclizine [Antivert] 25 mg PO QID PRN #20 tablet 09/20/18 [Rx] Metoclopramide [Reglan] 5 mg PO QIDAC #60 tablet 09/20/18 [Rx] Allergies/Adverse Reactions: Allergy/AdvReac Type Severity Reaction Status Date / Time sulfamethoxazole Allergy Vomiting Verified 09/12/18 21:25 [From Bactrim] trimethoprim [From Bactrim] Allergy Vomiting Verified 09/12/18 21:25 Date of admission: 09/15/18 18:43 Primary care physician: Jody Allan - Constitutional Vitals: Temp Pulse Resp BP Pulse Ox 100.1 F H 81 20 94/64 97 09/20/18 13:15 09/20/18 13:15 09/20/18 13:15 09/20/18 13:15 09/20/18 13:15 - Patient Status Disposition: Home, Self-Care Condition: Fair - Discharge Instructions Follow Up With: oJdy Allan MD [Primary Care Provider] - - Diet and Activity Activity: resume usual activities as tolerated Diet: diabetic diet - VTE Reasons for not Prescribing Prophylaxis: Treatment not Indicated - Low risk for VTE
== END 2018-09-20 18:53 | disposition home or self-care (01) ==
LOC: EMEROOPIK 12:26 → INPPIK 12:26
PROVIDERS: ADMIT Internal Medicine; ATTEND Internal Medicine

== ENCOUNTER 2019-01-10 17:33 | Observation (INO) ==
[2019-01-10] MEDS ORDERED: Ondansetron 4 MG/2 ML VIAL IVP ONE (17:56)
[2019-01-10] MEDS ORDERED: 0.9 % Sodium Chloride 1,000 ML IVC ONE (17:56)
[2019-01-10 17:59] LABS: Bilirubin,Urine Negative (Negative); Blood,Urine Small (Negative); Clarity,Urine Cloudy (Clear); Glucose,Urine (UA) 500 mg/dL (Normal); Ketones,Urine 80 mg/dL (Negative); Leukocyte Esterase,Urine Negative (Negative); Nitrite,Urine Negative (Negative); PH,Urine 7.5 pH Units (5.0-8.0); Protein,Urine 100 mg/dL (Neg-Trace); Urobilinogen,Urine Normal (Normal)
[2019-01-10 18:04] LABS: Color,Urine Light Yellow (Yellow)
[2019-01-10 18:06] LABS: RBC,Urine 0-3 per hpf (0-3); Squamous Epithelial Cell,Urine Few per lpf (None-Few)
[2019-01-10 18:07] LABS: Bacteria,Urine Many per hpf (None-Few); Triple Phosphate Crystal,Urine Present
[2019-01-10 18:33] LABS: Basophils % 0.3 %; Hematocrit 36.8 % (35.3-44.9); Hemoglobin 11.7 g/dL (11.5-15.4); Immature Granulocytes % 0.5 % (0-4); Lymphocytes % 3.9 %; Mean Corpuscular HGB Conc 31.8 g/dL (31.6-35.5); Mean Corpuscular Hemoglobin 26.2 pg (28.0-33.3); Mean Corpuscular Volume 82.3 fL (83.0-100.0); Mean Platelet Volume 9.8 fL (9.4-12.4); Monocytes # 0.7 K/mcL (0.0-1.3); Neutrophils # 10.2 K/mcL (1.6-8.9); Platelet Count 204 K/mcL (140-400); Red Blood Count 4.47 M/mcL (3.82-4.97); Red Cell Distribution Width 14.1 % (11.5-14.5); Segmented Neutrophils % 89.3 %; White Blood Count 11.4 K/mcL (4.3-11.1)
[2019-01-10 18:34] LABS: VBG HCO3 23 mEq/L (21-27); VBG PCO2 42 mmHg (41-51); VBG PH 7.34 pH Units (7.32-7.42); VBG PO2 47 mmHg (25-50)
[2019-01-10 18:35] LABS: Lymphocytes # 0.4 K/mcL (0.6-4.6)
[2019-01-10 18:50] LABS: Alanine Aminotransferase 9 Units/L (7-52); Albumin 3.7 g/dL (3.5-5.7); Albumin/Globulin Ratio 0.9 (1.1-2.2); Alkaline Phosphatase 84 Units/L (34-104); Aspartate Amino Transferase 9 Units/L (13-39); BUN/Creatinine Ratio 31 (6-26); Bilirubin,Direct 0.2 mg/dL (0.0-0.2); Bilirubin,Indirect 0.9 mg/dL (0.0-1.0); Bilirubin,Total 1.1 mg/dL (0.3-1.0); Blood Urea Nitrogen 27 mg/dL (6-20); Calcium 9.5 mg/dL (8.6-10.3); Carbon Dioxide 23 mEq/L (23-29); Chloride 96 mEq/L (98-107); Globulin 3.9 g/dL (2.4-3.5); Glucose 416 mg/dL (70-105); Lipase < 3 Units/L (11-82); Osmolality,Calculated 309 (280-300); Potassium 3.7 mEq/L (3.5-5.1); Sodium 138 mEq/L (136-145); Total Protein 7.6 g/dL (6.4-8.9); eGFR For African Americans > 60 (> 60); eGFR For Non-African Americans > 60 (> 60)
[2019-01-10] MEDS ORDERED: Insulin Regular, Human 100 UNIT/ML SQ ONE (19:13)
[2019-01-10] MEDS ORDERED: Dextrose Gel 15 GM/37.5 ML TUBE PO PRN ×2 (20:28)
[2019-01-10] MEDS ORDERED: Naloxone 0.4 MG/ML INJ IVP PRN (20:28)
[2019-01-10] MEDS ORDERED: D5% in Water 1,000 ML IVC PRN (20:28)
[2019-01-10] MEDS ORDERED: Ondansetron 4 MG/2 ML VIAL IVP PRN (20:28)
[2019-01-10] MEDS ORDERED: (Semaglutide [Ozempic] 0.25 MG) SQ SCH (20:28)
[2019-01-10] MEDS ORDERED: *HR* Dextrose 50 % in Water (Syg) 50 ML SYRINGE IVP PRN (20:28)
[2019-01-10] MEDS ORDERED: Insulin DETEMIR 100 UNIT/ML per UNIT SQ SCH (21:00)
[2019-01-10] MEDS: 0.9 % Sodium Chloride 1,000 ML IVC SCH (21:39)
[2019-01-10] MEDS: *HR* Promethazine 25 MG/ML VIAL IVP PRN (23:26)
[2019-01-10] MEDS: Insulin LISPRO 300 UNITS/3 ML VIAL SQ SCH (23:26)
[2019-01-11] MEDS: Ondansetron 4 MG/2 ML VIAL IVP PRN ×4 (03:01→20:17)
[2019-01-11] MEDS: *HR* Promethazine 25 MG/ML VIAL IVP PRN ×5 (03:58→23:24)
[2019-01-11] MEDS: 0.9 % Sodium Chloride 1,000 ML IVC SCH (05:06)
[2019-01-11] MEDS: Insulin LISPRO 300 UNITS/3 ML VIAL SQ SCH ×3 (05:08→17:36)
[2019-01-11 07:47] LABS: Basophils % 0.1 %; Hematocrit 34.3 % (35.3-44.9); Hemoglobin 10.9 g/dL (11.5-15.4); Immature Granulocytes % 0.4 % (0-4); Lymphocytes # 0.4 K/mcL (0.6-4.6); Lymphocytes % 3.8 %; Mean Corpuscular HGB Conc 31.8 g/dL (31.6-35.5); Mean Corpuscular Hemoglobin 25.9 pg (28.0-33.3); Mean Corpuscular Volume 81.5 fL (83.0-100.0); Mean Platelet Volume 9.7 fL (9.4-12.4); Monocytes # 0.9 K/mcL (0.0-1.3); Monocytes % 8.2 %; Neutrophils # 9.9 K/mcL (1.6-8.9); Platelet Count 223 K/mcL (140-400); Red Blood Count 4.21 M/mcL (3.82-4.97); Red Cell Distribution Width 14.3 % (11.5-14.5); Segmented Neutrophils % 87.5 %; White Blood Count 11.3 K/mcL (4.3-11.1)
[2019-01-11 08:05] LABS: BUN/Creatinine Ratio 33 (6-26); Blood Urea Nitrogen 27 mg/dL (6-20); Calcium 9.1 mg/dL (8.6-10.3); Carbon Dioxide 30 mEq/L (23-29); Chloride 104 mEq/L (98-107); Glucose 192 mg/dL (70-105); Osmolality,Calculated 302 (280-300); Potassium 3.5 mEq/L (3.5-5.1); Sodium 141 mEq/L (136-145); eGFR For African Americans > 60 (> 60); eGFR For Non-African Americans > 60 (> 60)
[2019-01-11] MEDS: cefTRIAXone 1,000 MG in 0.9 % Sodium Chloride Mini Bag 100 ML IVPB SCH (08:12)
[2019-01-11] MEDS: *HR* Metformin 500 MG TABLET PO SCH (08:12)
[2019-01-11] MEDS ORDERED: *HR* Dextrose 50 % in Water (Vial) 50 ML VIAL IVP PRN (09:30)
[2019-01-11] MEDS: 0.45 % Sodium Chloride w/KCl 20 MEQ/1,000 ML MLS IVC SCH ×2 (14:54→23:25)
[2019-01-11] MEDS: Lactobacillus 1 EACH CAP.SPRINK PO SCH (20:18)
[2019-01-11 20:36] LABS: % Iron Saturation 6 % (15-50); Iron 17 mcg/dL (50-170); Transferrin 216 mg/dL (203-362)
[2019-01-11 20:45] LABS: Folate > 22.3 ng/mL (3.0-16.0); Vitamin B12 297 pg/mL (250-1100)
[2019-01-11] MEDS: Insulin DETEMIR 100 UNIT/ML X5UNITS SQ SCH (20:52)
[2019-01-11 20:56] LABS: Ferritin 91 ng/mL (10-120)
[2019-01-12] MEDS: Insulin LISPRO 300 UNITS/3 ML VIAL SQ SCH ×5 (00:51→23:59)
[2019-01-12] MEDS: Ondansetron 4 MG/2 ML VIAL IVP PRN ×4 (02:12→22:28)
[2019-01-12] MEDS: *HR* Promethazine 25 MG/ML VIAL IVP PRN ×3 (04:40→20:36)
[2019-01-12 06:54] LABS: Basophils % 0.2 %; Hematocrit 34.6 % (35.3-44.9); Immature Granulocytes % 0.3 % (0-4); Lymphocytes # 0.7 K/mcL (0.6-4.6); Lymphocytes % 7.4 %; Mean Corpuscular HGB Conc 31.8 g/dL (31.6-35.5); Mean Corpuscular Hemoglobin 25.9 pg (28.0-33.3); Mean Corpuscular Volume 81.4 fL (83.0-100.0); Mean Platelet Volume 9.5 fL (9.4-12.4); Monocytes % 11.3 %; Neutrophils # 7.2 K/mcL (1.6-8.9); Platelet Count 203 K/mcL (140-400); Red Blood Count 4.25 M/mcL (3.82-4.97); Red Cell Distribution Width 14.2 % (11.5-14.5); Segmented Neutrophils % 80.8 %; White Blood Count 8.9 K/mcL (4.3-11.1)
[2019-01-12 07:33] LABS: BUN/Creatinine Ratio 24 (6-26); Blood Urea Nitrogen 14 mg/dL (6-20); Calcium 8.6 mg/dL (8.6-10.3); Carbon Dioxide 31 mEq/L (23-29); Chloride 101 mEq/L (98-107); Glucose 149 mg/dL (70-105); Osmolality,Calculated 291 (280-300); Potassium 3.2 mEq/L (3.5-5.1); Sodium 139 mEq/L (136-145); eGFR For African Americans > 60 (> 60); eGFR For Non-African Americans > 60 (> 60)
[2019-01-12] MEDS: cefTRIAXone 1,000 MG in 0.9 % Sodium Chloride Mini Bag 100 ML IVPB SCH (08:06)
[2019-01-12] MEDS: *HR* Metformin 500 MG TABLET PO SCH (08:07)
[2019-01-12] MEDS: Lactobacillus 1 EACH CAP.SPRINK PO SCH ×2 (08:07→20:33)
[2019-01-12] MEDS: 0.45 % Sodium Chloride w/KCl 20 MEQ/1,000 ML MLS IVC SCH ×3 (11:54→22:26)
[2019-01-12] MEDS: Insulin DETEMIR 100 UNIT/ML X5UNITS SQ SCH (20:33)
[2019-01-13] MEDS: Insulin LISPRO 300 UNITS/3 ML VIAL SQ SCH ×3 (05:52→17:43)
[2019-01-13] MEDS: Ascorbic Acid 500 MG TABLET PO SCH ×2 (05:54→08:27)
[2019-01-13 07:18] LABS: Basophils % 0.2 %; Eosinophils % 0.1 %; Hematocrit 35.7 % (35.3-44.9); Hemoglobin 11.4 g/dL (11.5-15.4); Immature Granulocytes % 0.4 % (0-4); Lymphocytes # 1.3 K/mcL (0.6-4.6); Mean Corpuscular HGB Conc 31.9 g/dL (31.6-35.5); Mean Corpuscular Hemoglobin 25.7 pg (28.0-33.3); Mean Corpuscular Volume 80.6 fL (83.0-100.0); Monocytes # 0.9 K/mcL (0.0-1.3); Monocytes % 11.1 %; Neutrophils # 5.9 K/mcL (1.6-8.9); Platelet Count 189 K/mcL (140-400); Red Blood Count 4.43 M/mcL (3.82-4.97); Red Cell Distribution Width 13.8 % (11.5-14.5); Segmented Neutrophils % 72.2 %; White Blood Count 8.1 K/mcL (4.3-11.1)
[2019-01-13 07:43] LABS: BUN/Creatinine Ratio 29 (6-26); Blood Urea Nitrogen 15 mg/dL (6-20); Calcium 8.3 mg/dL (8.6-10.3); Carbon Dioxide 30 mEq/L (23-29); Chloride 100 mEq/L (98-107); Glucose 138 mg/dL (70-105); Osmolality,Calculated 283 (280-300); Potassium 3.4 mEq/L (3.5-5.1); Sodium 135 mEq/L (136-145); eGFR For African Americans > 60 (> 60); eGFR For Non-African Americans > 60 (> 60)
[2019-01-13] MEDS: Lactobacillus 1 EACH CAP.SPRINK PO SCH (08:20)
[2019-01-13] MEDS: *HR* Metformin 500 MG TABLET PO SCH (08:20)
[2019-01-13] MEDS: Ondansetron 4 MG/2 ML VIAL IVP PRN ×2 (08:28→16:54)
[2019-01-13] MEDS: cefTRIAXone 1,000 MG in 0.9 % Sodium Chloride Mini Bag 100 ML IVPB SCH (08:28)
[2019-01-13] MEDS ORDERED: GI Cocktail 40 ML EACH PO ONE (10:16)
[2019-01-13] MEDS: 0.45 % Sodium Chloride w/KCl 20 MEQ/1,000 ML MLS IVC SCH (11:18)
[2019-01-13] MEDS ORDERED: Nitroglycerin 0.4 MG TAB.SUBL SL PRN (11:38)
[2019-01-13 16:57] VITALS: BP 152/96
== END 2019-01-13 18:05 | disposition home or self-care (01) ==
LOC: INPPIK 17:33 → EMEROOPIK 17:33 → INPPIK 20:20
PROVIDERS: ADMIT Internal Medicine; ATTEND Internal Medicine

== ENCOUNTER 2019-06-03 18:23 | Observation (INO) ==
[2019-06-03] MEDS ORDERED: 0.9 % Sodium Chloride 1,000 ML IVC ONE (18:52)
[2019-06-03] MEDS ORDERED: Ondansetron 4 MG/2 ML VIAL IVP ONE (18:52)
[2019-06-03] MEDS ORDERED: Insulin Regular, Human 100 UNIT/ML SQ ONE ×2 (19:20→21:19)
[2019-06-03 19:33] LABS: Basophils % 0.1 %; Hematocrit 43.6 % (35.3-44.9); Hemoglobin 13.8 g/dL (11.5-15.4); Immature Granulocytes % 0.6 % (0-4); Lymphocytes # 1.1 K/mcL (0.6-4.6); Lymphocytes % 5.6 %; Mean Corpuscular HGB Conc 31.7 g/dL (31.6-35.5); Mean Corpuscular Hemoglobin 26.3 pg (28.0-33.3); Mean Platelet Volume 10.4 fL (9.4-12.4); Monocytes # 1.5 K/mcL (0.0-1.3); Monocytes % 7.4 %; Platelet Count 311 K/mcL (140-400); Red Blood Count 5.25 M/mcL (3.82-4.97); Red Cell Distribution Width 14.9 % (11.5-14.5); Segmented Neutrophils % 86.3 %; White Blood Count 19.7 K/mcL (4.3-11.1)
[2019-06-03 19:34] LABS: VBG HCO3 31 mEq/L (21-27); VBG PCO2 34 mmHg (41-51); VBG PH 7.57 pH Units (7.32-7.42); VBG PO2 191 mmHg (25-50)
[2019-06-03 20:11] LABS: Albumin 4.4 g/dL (3.5-5.7); Bilirubin,Direct 0.2 mg/dL (0.0-0.2); Bilirubin,Indirect 1.3 mg/dL (0.0-1.0); Bilirubin,Total 1.5 mg/dL (0.3-1.0); Calcium 10.9 mg/dL (8.6-10.3); Globulin 4.2 g/dL (2.4-3.5); Potassium 3.3 mEq/L (3.5-5.1); Total Protein 8.6 g/dL (6.4-8.9)
[2019-06-03] MEDS ORDERED: 0.9 % Sodium Chloride 1,000 ML ONE (20:38)
[2019-06-03] MEDS ORDERED: Haloperidol Lactate 5 MG/ML VIAL IVP ONE (21:19)
[2019-06-03] MEDS ORDERED: 0.9 % Sodium Chloride 1,000 ML IVC SCH (21:30)
[2019-06-03 22:14] LABS: Bilirubin,Urine Negative (Negative); Blood,Urine Trace-intact (Negative); Clarity,Urine Cloudy (Clear); Color,Urine Yellow (Yellow); Glucose,Urine (UA) 500 mg/dL (Normal); Ketones,Urine Trace mg/dL (Negative); Leukocyte Esterase,Urine Small (Negative); Nitrite,Urine Negative (Negative); PH,Urine 6.5 pH Units (5.0-8.0); Protein,Urine 30 mg/dL (Neg-Trace); Specific Gravity,Urine 1.025 (1.010-1.025); Urobilinogen,Urine Normal (Normal)
[2019-06-03 22:22] LABS: Bacteria,Urine Many per hpf (None-Few); WBC,Urine TNTC per hpf (0-3)
[2019-06-03] MEDS ORDERED: cefTRIAXone 2,000 MG in 0.9 % Sodium Chloride Mini Bag 100 ML IVPB ONE ×2 (22:28→22:53)
[2019-06-03 22:29] LABS: Amphetamine Screen,Urine Negative ng/mL (Cutoff=1000); Barbiturate Screen,Urine Negative ng/mL (Cutoff=200); Benzodiazepines Screen,Urine Negative ng/mL (Cutoff=200); Cannabinoid Screen,Urine Negative ng/mL (Cutoff = 50); Cocaine Screen,Urine Negative ng/mL (Cutoff= 300); Opiate Screen,Urine Negative ng/mL (Cutoff=300); Phencyclidine Screen,Urine Negative ng/mL (Cutoff=25)
[2019-06-03] MEDS ORDERED: Dextrose Gel 15 GM/37.5 ML TUBE PO PRN ×2 (22:53)
[2019-06-03] MEDS ORDERED: Naloxone 0.4 MG/ML INJ IVP PRN (22:53)
[2019-06-03] MEDS ORDERED: D5% in Water 1,000 ML IVC PRN (22:53)
[2019-06-03] MEDS ORDERED: *HR* Dextrose 50 % in Water (Syg) 50 ML SYRINGE IVP PRN (22:53)
[2019-06-03] MEDS ORDERED: *HR* Promethazine 25 MG/ML VIAL IVP PRN (22:53)
[2019-06-03] MEDS ORDERED: hydrOXYzine pamoate 25 MG CAPSULE PO PRN (22:53)
[2019-06-03] MEDS ORDERED: Ondansetron 4 MG/2 ML VIAL IVP PRN (22:53)
[2019-06-04] MEDS: 0.9 % Sodium Chloride 1,000 ML IVC SCH ×4 (00:13→23:59)
[2019-06-04 07:37] LABS: BUN/Creatinine Ratio 54 (6-26); Blood Urea Nitrogen 56 mg/dL (6-20); Calcium 9.2 mg/dL (8.6-10.3); Carbon Dioxide 36 mEq/L (23-29); Chloride 94 mEq/L (98-107); Glucose 249 mg/dL (70-105); Osmolality,Calculated 312 (280-300); Potassium 3.1 mEq/L (3.5-5.1); Sodium 139 mEq/L (136-145); eGFR For African Americans > 60 (> 60); eGFR For Non-African Americans 55 (> 60)
[2019-06-04 07:40] LABS: Basophils % 0.1 %; Eosinophils % 0.1 %; Hemoglobin 11.5 g/dL (11.5-15.4); Immature Granulocytes % 0.3 % (0-4); Lymphocytes # 0.8 K/mcL (0.6-4.6); Lymphocytes % 5.4 %; Mean Corpuscular HGB Conc 31.9 g/dL (31.6-35.5); Mean Corpuscular Volume 81.3 fL (83.0-100.0); Mean Platelet Volume 10.2 fL (9.4-12.4); Monocytes % 6.9 %; Neutrophils # 12.8 K/mcL (1.6-8.9); Platelet Count 239 K/mcL (140-400); Red Blood Count 4.43 M/mcL (3.82-4.97); Red Cell Distribution Width 14.8 % (11.5-14.5); Segmented Neutrophils % 87.2 %; White Blood Count 14.7 K/mcL (4.3-11.1)
[2019-06-04] MEDS: Gabapentin 100 MG CAPSULE PO SCH ×3 (07:53→20:17)
[2019-06-04] MEDS: Levothyroxine 25 MCG TABLET PO SCH (07:54)
[2019-06-04] MEDS: Insulin LISPRO 300 UNITS/3 ML VIAL SQ SCH ×4 (07:55→16:34)
[2019-06-04] MEDS: Ondansetron ODT 4 MG TAB.RAPDIS PO PRN ×2 (11:57→20:17)
[2019-06-04] MEDS ORDERED: cefTRIAXone 2,000 MG in 0.9 % Sodium Chloride Mini Bag 100 ML IVPB SCH (15:00)
[2019-06-04 17:15] LABS: Estimated Average Glucose 177 mg/dl
[2019-06-04] MEDS: cefTRIAXone 1,000 MG in Water for inj. (sterile) 10 ML IVP SCH (20:17)
[2019-06-04] MEDS: Insulin DETEMIR 100 UNIT/ML per UNIT SQ SCH (20:17)
[2019-06-05] MEDS: Insulin LISPRO 300 UNITS/3 ML VIAL SQ SCH ×4 (02:14→16:52)
[2019-06-05 05:47] LABS: Hematocrit 35.5 % (35.3-44.9); Hemoglobin 11.2 g/dL (11.5-15.4); Mean Corpuscular HGB Conc 31.5 g/dL (31.6-35.5); Mean Corpuscular Volume 82.4 fL (83.0-100.0); Mean Platelet Volume 11.1 fL (9.4-12.4); Platelet Count 148 K/mcL (140-400); Red Blood Count 4.31 M/mcL (3.82-4.97); Red Cell Distribution Width 14.7 % (11.5-14.5); White Blood Count 7.4 K/mcL (4.3-11.1)
[2019-06-05] MEDS: *HR* Enoxaparin 40 MG/0.4 ML SYRINGE SQ SCH (05:52)
[2019-06-05] MEDS: Levothyroxine 25 MCG TABLET PO SCH (05:52)
[2019-06-05 06:03] LABS: BUN/Creatinine Ratio 42 (6-26); Blood Urea Nitrogen 31 mg/dL (6-20); Calcium 8.6 mg/dL (8.6-10.3); Carbon Dioxide 31 mEq/L (23-29); Chloride 100 mEq/L (98-107); Glucose 243 mg/dL (70-105); Osmolality,Calculated 305 (280-300); Potassium 3.5 mEq/L (3.5-5.1); Sodium 140 mEq/L (136-145); eGFR For African Americans > 60 (> 60); eGFR For Non-African Americans > 60 (> 60)
[2019-06-05] MEDS: Gabapentin 100 MG CAPSULE PO SCH ×3 (08:05→20:55)
[2019-06-05] MEDS: 0.9 % Sodium Chloride 1,000 ML IVC SCH (08:06)
[2019-06-05] MEDS: Ondansetron ODT 4 MG TAB.RAPDIS PO PRN (11:47)
[2019-06-05] MEDS: cefTRIAXone 1,000 MG in Water for inj. (sterile) 10 ML IVP SCH (20:55)
[2019-06-05] MEDS: Insulin DETEMIR 100 UNIT/ML per UNIT SQ SCH (20:56)
[2019-06-05] MEDS ORDERED: Insulin LISPRO 300 UNITS/3 ML VIAL SQ SCH (21:00)
[2019-06-06] MEDS: *HR* Enoxaparin 40 MG/0.4 ML SYRINGE SQ SCH (06:33)
[2019-06-06] MEDS: Levothyroxine 25 MCG TABLET PO SCH (06:33)
[2019-06-06] MEDS: Ondansetron ODT 4 MG TAB.RAPDIS PO PRN (06:33)
[2019-06-06] MEDS: Gabapentin 100 MG CAPSULE PO SCH ×2 (07:49→14:38)
[2019-06-06] MEDS: Insulin LISPRO 300 UNITS/3 ML VIAL SQ SCH ×3 (07:54→16:07)
[2019-06-06 08:00] LABS: BUN/Creatinine Ratio 23 (6-26); Blood Urea Nitrogen 14 mg/dL (6-20); Calcium 8.1 mg/dL (8.6-10.3); Carbon Dioxide 32 mEq/L (23-29); Chloride 99 mEq/L (98-107); Glucose 180 mg/dL (70-105); Osmolality,Calculated 289 (280-300); Sodium 137 mEq/L (136-145); eGFR For African Americans > 60 (> 60); eGFR For Non-African Americans > 60 (> 60)
[2019-06-06] MEDS ORDERED: Pantoprazole 40 MG VIAL IVP SCH (09:00)
[2019-06-06 14:16] VITALS: BP 99/66
== END 2019-06-06 18:04 | disposition home or self-care (01) ==
LOC: INPPIK 18:23 → EMEROOPIK 18:23 → INPPIK 22:15
PROVIDERS: ADMIT Family Medicine; ATTEND Family Medicine

== ENCOUNTER 2019-09-16 19:52 | Observation (INO) ==
[2019-09-16] MEDS ORDERED: 0.9 % Sodium Chloride 1,000 ML IVC ONE (19:59)
[2019-09-16] MEDS ORDERED: Ondansetron 4 MG/2 ML VIAL IVP ONE (19:59)
[2019-09-16] MEDS ORDERED: 0.9 % Sodium Chloride 1,000 ML IVC SCH (20:00)
[2019-09-16 20:21] LABS: Basophils % 0.1 %; Eosinophils % 0.2 %; Hematocrit 42.7 % (35.3-44.9); Hemoglobin 13.6 g/dL (11.5-15.4); Immature Granulocytes % 0.4 % (0-4); Lymphocytes % 6.6 %; Mean Corpuscular HGB Conc 31.9 g/dL (31.6-35.5); Mean Corpuscular Hemoglobin 24.8 pg (28.0-33.3); Mean Corpuscular Volume 77.8 fL (83.0-100.0); Mean Platelet Volume 10.8 fL (9.4-12.4); Monocytes # 1.2 K/mcL (0.0-1.3); Monocytes % 8.2 %; Platelet Count 251 K/mcL (140-400); Red Blood Count 5.49 M/mcL (3.82-4.97); Red Cell Distribution Width 14.6 % (11.5-14.5); Segmented Neutrophils % 84.5 %
[2019-09-16 20:24] LABS: Neutrophils # 12.7 K/mcL (1.6-8.9)
[2019-09-16 20:40] LABS: Albumin 3.7 g/dL (3.5-5.7); Albumin/Globulin Ratio 1.1 (1.1-2.2); Bilirubin,Direct 0.2 mg/dL (0.0-0.2); Bilirubin,Indirect 1.2 mg/dL (0.0-1.0); Bilirubin,Total 1.4 mg/dL (0.3-1.0); Calcium 9.7 mg/dL (8.6-10.3); Globulin 3.5 g/dL (2.4-3.5); Potassium 3.8 mEq/L (3.5-5.1); Total Protein 7.2 g/dL (6.4-8.9)
[2019-09-16] MEDS ORDERED: Insulin Regular, Human 100 UNIT/ML SQ ONE ×2 (20:42→22:13)
[2019-09-16 20:47] LABS: Bilirubin,Urine Negative (Negative); Blood,Urine Trace-lysed (Negative); Clarity,Urine Cloudy (Clear); Color,Urine Yellow (Yellow); Glucose,Urine (UA) 100 mg/dL (Normal); Ketones,Urine Trace mg/dL (Negative); Leukocyte Esterase,Urine Large (Negative); Nitrite,Urine Negative (Negative); PH,Urine 6.5 pH Units (5.0-8.0); Protein,Urine 30 mg/dL (Neg-Trace); Specific Gravity,Urine 1.025 (1.010-1.025); Urobilinogen,Urine Normal (Normal)
[2019-09-16 21:01] LABS: WBC,Urine TNTC per hpf (0-3)
[2019-09-16 21:02] LABS: Bacteria,Urine Many per hpf (None-Few); Squamous Epithelial Cell,Urine Few per hpf (None-Few)
[2019-09-16] MEDS ORDERED: cefTRIAXone 2,000 MG in 0.9 % Sodium Chloride Mini Bag 100 ML IVPB ONE (21:07)
[2019-09-16] MEDS ORDERED: levoFLOXacin 750 MG/150 ML 750 MG/150 ML BAG IVPB ONE (21:51)
[2019-09-16] MEDS ORDERED: Ondansetron ODT 4 MG TAB.RAPDIS SL PRN (22:44)
[2019-09-16] MEDS ORDERED: *HR* Dextrose 50 % in Water (Vial) 50 ML VIAL IVP PRN (22:44)
[2019-09-16] MEDS ORDERED: Mag Hydrox/Al Hydrox/Simeth 30 ML UDC PO PRN (22:44)
[2019-09-16] MEDS ORDERED: Ondansetron 4 MG/2 ML VIAL IVP PRN (22:44)
[2019-09-16] MEDS ORDERED: Naloxone 0.4 MG/ML INJ IVP PRN (22:44)
[2019-09-16] MEDS ORDERED: Dextrose Gel 15 GM/37.5 ML TUBE PO PRN ×2 (22:44)
[2019-09-16] MEDS ORDERED: D5% in Water 1,000 ML IVC PRN (22:44)
[2019-09-17] MEDS: 0.9 % Sodium Chloride 1,000 ML IVC SCH ×4 (00:23→21:34)
[2019-09-17 07:07] LABS: BUN/Creatinine Ratio 62 (6-26); Blood Urea Nitrogen 61 mg/dL (6-20); Calcium 8.9 mg/dL (8.6-10.3); Carbon Dioxide 33 mEq/L (23-29); Chloride 93 mEq/L (98-107); Glucose 76 mg/dL (70-105); Osmolality,Calculated 296 (280-300); Potassium 2.9 mEq/L (3.5-5.1); Sodium 135 mEq/L (136-145); eGFR For African Americans > 60 (> 60); eGFR For Non-African Americans 58 (> 60)
[2019-09-17] MEDS: Insulin LISPRO 300 UNITS/3 ML VIAL SQ SCH ×3 (07:40→17:06)
[2019-09-17] MEDS ORDERED: hydrOXYzine pamoate 25 MG CAPSULE PO PRN (09:15)
[2019-09-17] MEDS: Levothyroxine 25 MCG TABLET PO SCH (12:10)
[2019-09-17] MEDS: Ondansetron 4 MG/2 ML VIAL IVP PRN ×3 (12:36→21:42)
[2019-09-17] MEDS: Nystatin SUSP 5 ML UD.LIQ PO SCH ×3 (14:20→21:32)
[2019-09-17] MEDS ORDERED: GI Cocktail 40 ML EACH PO ONE (14:27)
[2019-09-17 15:26] LABS: BUN/Creatinine Ratio 67 (6-26); Blood Urea Nitrogen 55 mg/dL (6-20); Calcium 8.4 mg/dL (8.6-10.3); Carbon Dioxide 30 mEq/L (23-29); Chloride 94 mEq/L (98-107); Glucose 204 mg/dL (70-105); Osmolality,Calculated 297 (280-300); Potassium 3.6 mEq/L (3.5-5.1); Sodium 133 mEq/L (136-145); eGFR For African Americans > 60 (> 60); eGFR For Non-African Americans > 60 (> 60)
[2019-09-17] MEDS ORDERED: Insulin LISPRO 300 UNITS/3 ML VIAL SQ SCH ×2 (21:00)
[2019-09-17] MEDS ORDERED: levoFLOXacin 500 MG/100 ML 500 MG/100 ML BAG IVPB SCH (21:00)
[2019-09-17] MEDS ORDERED: Gabapentin 100 MG CAPSULE PO SCH (21:00)
[2019-09-18] MEDS: 0.9 % Sodium Chloride 1,000 ML IVC SCH (05:49)
[2019-09-18] MEDS: Levothyroxine 25 MCG TABLET PO SCH (05:49)
[2019-09-18 05:50] LABS: Basophils % 0.1 %; Eosinophils # 0.1 K/mcL (0.0-0.6); Eosinophils % 0.6 %; Hematocrit 35.3 % (35.3-44.9); Hemoglobin 10.9 g/dL (11.5-15.4); Immature Granulocytes % 0.6 % (0-4); Lymphocytes # 0.7 K/mcL (0.6-4.6); Lymphocytes % 9.3 %; Mean Corpuscular HGB Conc 30.9 g/dL (31.6-35.5); Mean Corpuscular Hemoglobin 24.5 pg (28.0-33.3); Mean Corpuscular Volume 79.3 fL (83.0-100.0); Mean Platelet Volume 11.2 fL (9.4-12.4); Monocytes # 0.9 K/mcL (0.0-1.3); Monocytes % 11.9 %; Neutrophils # 6.1 K/mcL (1.6-8.9); Platelet Count 156 K/mcL (140-400); Red Blood Count 4.45 M/mcL (3.82-4.97); Red Cell Distribution Width 15.4 % (11.5-14.5); Segmented Neutrophils % 77.5 %; White Blood Count 7.9 K/mcL (4.3-11.1)
[2019-09-18 06:33] LABS: BUN/Creatinine Ratio 51 (6-26); Blood Urea Nitrogen 45 mg/dL (6-20); Calcium 8.1 mg/dL (8.6-10.3); Carbon Dioxide 27 mEq/L (23-29); Chloride 97 mEq/L (98-107); Glucose 260 mg/dL (70-105); Osmolality,Calculated 297 (280-300); Potassium 4.2 mEq/L (3.5-5.1); Sodium 133 mEq/L (136-145); eGFR For African Americans > 60 (> 60); eGFR For Non-African Americans > 60 (> 60)
[2019-09-18] MEDS: Nystatin SUSP 5 ML UD.LIQ PO SCH (08:00)
[2019-09-18] MEDS: Insulin LISPRO 300 UNITS/3 ML VIAL SQ SCH (08:01)
[2019-09-18] MEDS: Ondansetron 4 MG/2 ML VIAL IVP PRN (08:06)
[2019-09-18 10:25] VITALS: BP 94/67
[2019-09-18] MEDS ORDERED: Acetaminophen 325 MG TABLET PO PRN (10:31)
[2019-09-18] MEDS ORDERED: *HR* Magnesium Sulfate 2 GM/50 ML PIGGYBACK IVPB ONE (12:00)
[2019-09-18] MEDS ORDERED: *HR* EPINEPHrine 1 MG/10 ML SYRINGE ONE ×2 (12:00)
[2019-09-18] MEDS ORDERED: *HR* Norepinephrine 4 MG/4 ML VIAL IVC ONE (12:00)
[2019-09-18] MEDS ORDERED: *HR* Atropine Sulfate 1 MG/10 ML SYRINGE ONE (12:00)
[2019-09-18] MEDS ORDERED: *HR* Atropine Sulfate 8 MG/20 ML VIAL IVP ONE (12:00)
[2019-09-18] MEDS ORDERED: 0.9 % Sodium Chloride 1,000 ML IV.SOLN ONE (12:00)
[2019-09-18 12:33] LABS: % Iron Saturation 11 % (15-50); Iron 29 mcg/dL (50-170); Transferrin 188 mg/dL (203-362)
[2019-09-18 20:53] LABS: Folate 7.7 ng/mL (3.0-16.0)
== END 2019-09-18 13:02 | disposition expired ==
LOC: EMEROOPIK 19:52 → INPPIK 19:52
PROVIDERS: ADMIT Family Medicine; ATTEND Family Medicine